=== PATIENT | male | born 1995 | race Caucasian/White ===

== ENCOUNTER 2023-09-07 19:26 | Emergency (ER) | payer SELFPAY ==
[2023-09-07 19:32] VITALS: BP 146/89; PULSE 84; RESP 16; TEMP 36; O2SAT 98
--- NOTE | 2023-09-07 20:12 | ED.ANXIETY ---
HPI - Anxiety General Chief Complaint: Anxiety Stated Complaint: anxiety attack Time Seen by Provider: 09/07/23 19:55 History of Present Illness HPI narrative: 28-year-old male presenting emergency department for evaluation of a panic attack. Patient states that he has been having panic attacks but he had a very severe 1 today. Patient reports he has been having left-sided lateral leg pain over the course of the last month and patient states the pain came and resolved today. Patient began googling what this may be and became concerned this could be a blood clot. Patient states this triggered a panic attack and patient presented to the ED for evaluation. Upon arrival emergency department patient states he does feel improved. Related Data Allergies Allergy/AdvReac Type Severity Reaction Status Date / Time latex AdvReac Rash Verified 09/07/23 19:28 red dye AdvReac Rash Verified 09/07/23 19:28 Review of Systems Review of Systems: All systems reviewed & are unremarkable except as noted in HPI and below PMFSH Social History Social History Substance use type: does not use Exam Narrative: APPEARANCE: Well appearing, no pain, no distress, well-nourished. HEAD: normocephalic, atraumatic. EYES: PERRLA/EOMI, conjunctivae clear. NOSE: Normal no drainage NECK: Supple. No adenopathy, no masses. RESPIRATORY: Airway patent, respirations nonlabored. Clear to auscultation bilaterally, no rales, rhonchi, wheezing. CARDIOVASCULAR: Regular rate and rhythm without murmurs rubs or gallops. ABDOMINAL: Soft, nontender, nondistended, normal bowel sounds MUSCULOSKELETAL: Moves all extremities. Strength/ROM intact, No edema, No calf tenderness. NEURO: Alert. Cranial nerves II through XII intact. SKIN: Warm, dry. Normal Color Course Course Emergency Course: Patient was provided medication for anxiety and patient was advised to take NSAIDs for the leg pain Vital Signs Vital signs: Vital Signs Temperature 96.8 F L 09/07/23 19:32 Pulse Rate 84 09/07/23 19:32 Respiratory Rate 16 09/07/23 19:32 Blood Pressure 146/89 H 09/07/23 19:32 Pulse Oximetry 98 09/07/23 19:32 Oxygen Delivery Room Air 09/07/23 19:32 Temperature 96.8 F L 09/07/23 19:32 Pulse Rate 84 09/07/23 19:32 Respiratory Rate 16 09/07/23 19:32 Blood Pressure 146/89 H 09/07/23 19:32 Pulse Oximetry 98 09/07/23 19:32 Oxygen Delivery Room Air 09/07/23 19:32 MDM - Anxiety MDM Narrative Medical decision making narrative: 28-year-old male presented emergency department for evaluation of left lateral leg pain and anxiety. Patient was treated for his panic attack. Suspect muscular strain versus possible ITB band syndrome as underlying etiology for the patient's leg pain. Low concern for DVT. Patient family were updated on the results of the exam and patient was provided medications for pain control and for anxiety control for home. Differential Diagnosis Differential diagnosis: Likely hyperventilation, panic disorder and acute anxiety Discharge Plan Discharge Clinical Impression: Acute anxiety, Left leg pain Patient Disposition: Home, Self-Care Condition: Stable Instructions: Antibiotic Form, Anxiety (ED), Leg Pain (ED) Additional Instructions: Ativan as needed for anxiety. Naproxen scheduled for the left leg pain. Have close follow-up with your primary care physician. Prescriptions: New lorazepam [Ativan] 0.5 mg tablet 0.5 mg PO BID PRN (Reason: anxiety) Qty: 10 0RF naproxen 500 mg tablet 500 mg PO BID 7 Days Qty: 14 0RF Follow-up/Referrals: Franck Michelle MD [Physician] - PHYSICIAN,[facility] [Primary Care Provider] -
[2023-09-07] MEDS: LORazepam (*CRX) 1 MG TABLET PO (20:25)
[2023-09-07] MEDS: NAPROXEN 500 MG TABLET PO (20:25)
== END 2023-09-07 20:32 | disposition home or self-care (01) ==
PROVIDERS: Emergency Provider Emergency Medicine
DX: F41.9 Anxiety disorder, unspecified (principal); M79.605 Pain in left leg
CPT/HCPCS: 99283; A9270